=== PATIENT | female | born 1935 | race Caucasian/White ===

== ENCOUNTER 2016-08-18 12:05 | Inpatient (IN) | payer OTHER ==
--- NOTE | ~2016-08-18 | OP ---
Record Of Operation [facility] [address] [place]. [address] NAME: DENNIS WHITLOCK : 33 STATUS : ADM IN PAT#: [id number] AGE: 81 ADM/REG DATE : 08/18/16 MR#: [id number] REPORT SERV DATE: 08/19/16 DICTATED BY: ELVI PIZANO DATE: 08/19/16 REPORT STATUS : Draft TRANSCRIBED BY: MODL DATE: 08/19/16 DATE OF PROCEDURE: 08/19/2016 PROCEDURE: Placement of right femoral A-line. REASON: Septic shock. The patient requires pressors and aggressive IV fluid resuscitation. This is an urgent situation. The patient is agreeable to placement of the central line. DESCRIPTION OF PROCEDURE: The right groin was prepped and draped in a sterile fashion. Lidocaine 1% was used as a local anesthetic. The right femoral vein was localized using ultrasound guidance. A finder needle was then inserted into the right femoral vein with good blood return. A larger bore needle was then inserted into the right femoral vein. The barrel of the needle was removed and a guidewire was then threaded through the needle with removal of the needle. The site was dilated and a 20 cm triple-lumen catheter was placed using Seldinger technique. The line was sewn in place with 2-0 silk and sterile Biopatch was applied along with sterile dressing. /ANTOINETTE Elvi Pizano M.D. / [id number] CC: Luciano Daily M.D.
--- NOTE | ~2016-08-18 | DS ---
Discharge Summary [facility] [address] [place]. [address] NAME: DENNIS WHITLOCK : 33 STATUS : DIS IN PAT#: [id number] AGE: 81 ADM/REG DATE : 08/18/16 MR#: [id number] REPORT SERV DATE: 09/19/16 DICTATED BY: CLAY HELM DATE: 09/19/16 REPORT STATUS : Draft TRANSCRIBED BY: ANTOINETTE DATE: 09/19/16 ADMISSION DATE: 08/18/2016 DISCHARGE DATE: 08/19/2016 SUMMARY CONDITION AT DISCHARGE: . Please note that within those 24 hours, the patient has a history and physical from the hospitalist, a consultation report from one of my partners in Critical Care on the day of discharge, consultation from Surgery and yet another of procedure and pulmonary critical care response from one my partners for the code blue called on Ms. Whitlock. There is ample documentation from her course and her code on the lead up to discontinuation of care, as well as documentation on the progress note. I was the manager payer steam conditioner filling that night who pronounced her passing, though I had not participated in her direct care up to that point. This was an 81-year-old woman, admitted with watery diarrhea and dehydration. She was found to have decreased appetite and weight loss, chronic GI problems. She was seen by Critical Care and was found to have significant failure to thrive, hypotension, and shock. She was placed on fluids and pressors and had developed pneumoperitoneum with free air in the abdomen. She had a perforated viscus with a deteriorating clinical condition. The patient had refused operative intervention for period of roughly two hours and underwent repair of a duodenal perforation earlier in the day, remained refractory septic shock, had an asystolic cardiac arrest. ACLS was promptly initiated by MICU staff, and she was seen by one of the partners in the Critical Care Medicine Service. She was stabilized and the team contacted her family who at that point, given her poor overall condition and status post arrest, opted to make her a DNR. She was made comfort measures while the family was en route to see the patient. The patient at 1550 hours in the afternoon. Family was present and notified. CINTIA/ANTOINETTE Clay Helm M.D. / [id number] CC: Migue Nash MD
--- NOTE | ~2016-08-18 | OP ---
Record Of Operation [facility] [address] [place] [address] NAME: DENNIS WHITLOCK : 33 STATUS : ADM IN PAT#: [id number] AGE: 81 ADM/REG DATE : 08/18/16 MR#: [id number] REPORT SERV DATE: 08/19/16 DICTATED BY: ELVI PIZANO DATE: 08/19/16 REPORT STATUS : Draft TRANSCRIBED BY: MODL DATE: 08/19/16 DATE OF PROCEDURE: 08/19/2016 PROCEDURE: Placement of right femoral arterial line. REASON: The patient septic on pressors and needs invasive arterial blood pressure monitoring. PROCEDURE IN DETAIL: The right groin already has been prepped and draped in sterile fashion. Lidocaine 1% was used as local anesthetic. The right femoral artery was localized using ultrasound guidance. The large bore needle was then inserted into the right femoral artery with good blood return. Guidewire was threaded through the needle, which was then removed. A 12 cm catheter was then inserted over the guidewire with removal of the guidewire. The line was sewn in place with 2-0 silk. Sterile Biopatch and dressings were applied, and good waveform was obtained. /ANTOINETTE Elvi Pizano M.D. / [id number] CC: Luciano Daily M.D.
--- NOTE | ~2016-08-18 | CN ---
Consultation Report [facility] [address] [place]. [address] NAME: DENNIS WHITLOCK : 33 STATUS : ADM IN PAT#: [id number] AGE: 81 ADM/REG DATE : 08/18/16 MR#: [id number] REPORT SERV DATE: 08/19/16 DICTATED BY: ELVI PIZANO DATE: 08/19/16 REPORT STATUS : Draft TRANSCRIBED BY: MODL DATE: 08/19/16 CONSULT AND CRITICAL CARE TIME DATE OF CONSULTATION: 08/19/2016 HISTORY OF PRESENT ILLNESS: This is an 81-year-old patient, I was called about an approximately quarter to 12 p.m. on 08/18/2016. The patient was admitted earlier on the 08/18/2016 with a chief complaint of watery diarrhea. She also was found to have decreased appetite, weight loss. She is followed by Dr. Benitez for her diarrhea. The patient has not been admitted here before but apparently according to the hospitalist dictation, there is no evidence of any celiac disease or colitis. The patient was treated for urinary tract infection in April. She went to see Dr. Benitez today and was found to be hypotensive and hypothermic. She was admitted to the floor and was hypotensive throughout the day into the evening on the floor. She had a CT scan of the abdomen and pelvis done and was found to have pneumoperitoneum and ascites consistent with perforated bowel. The patient continued to be hypotensive and then was transferred to the MICU for further care and treatment. The patient arrived to the MICU at 12:45 a.m. She was responsive, however, her blood pressure was in the 60s to 70s systolic despite IV fluid resuscitation. She required placement of a central line and A-line, initiation of Levophed, bicarbonate, and further IV fluid administration. The patient is in critical condition. ALLERGIES: SHE HAS NO KNOWN DRUG ALLERGIES. PAST MEDICAL HISTORY: Significant for chronic diarrhea, valvular heart disease namely aortic, iron-deficiency anemia. She is very hard of hearing. History of colonic polyps, glaucoma, dentures, frequent UTIs, duodenitis, hiatal hernia, gastritis, esophagitis, urinary incontinence, and failure to thrive. She has also had a bladder tack. SOCIAL HISTORY: She apparently lives independently. She is . She does not have any history of alcohol or tobacco abuse. FAMILY HISTORY: Significant for chronic diarrhea in her mother. Otherwise, no other known family history. REVIEW OF SYSTEMS: Biggest complaint is now of diffuse abdominal pain but it is localized mostly to the right lower quadrant. She has not had any diarrhea in the hospital. She denies any chest pain, nausea, or vomiting. The remainder of a 10-point review of systems is unremarkable. PHYSICAL EXAMINATION: VITAL SIGNS: Her blood pressure is 70 systolic. Her respiratory rate is 22. Her temp is 94. GENERAL: The patient is pale, emaciated, and cachectic looking. SKIN: Cool to touch. She is not diaphoretic. Consultation Report [facility] [address] [place]. [address] NAME: DENNIS WHITLOCK : 33 STATUS : ADM IN [facility]#: [id number] AGE: 81 ADM/REG DATE : 08/18/16 MR#: [id number] REPORT SERV DATE: 08/19/16 DICTATED BY: ELVI PIZANO DATE: 08/19/16 REPORT STATUS : Draft TRANSCRIBED BY: ANTOINETTE DATE: 08/19/16 HEENT: Head is atraumatic and normocephalic. Pupils are sluggishly reactive. Sclerae anicteric. Conjunctivae pale. Nasal mucosa within normal limits. Oral mucosa is dry. NECK: Neck is supple. There is no JVD, lymphadenopathy, or thyromegaly. LUNGS: Exam reveals distant breath sounds. Decreased at the bases. No wheezing heard. CARDIAC: Exam reveals an irregularly irregular rhythm, atrial fibrillation. No significant murmurs heard. BREASTS: Symmetrical. No masses. GI: Abdomen is flat at the time of initial examination but as the morning wore on, abdomen has become slightly more distended and is tender to touch. Bowel sounds are diminished. No organo-splenomegaly is appreciated. RECTAL: Deferred. GENITAL: Deferred. EXTREMITIES: Without cyanosis, clubbing, however she does have some lower extremity edema and dry and chronic skin changes. NEUROLOGIC: Cranial nerves 2 through 12 are grossly intact. Motor and sensory are intact. DATA: Chest x-ray; lungs are hyperinflated, all chronic changes are noted. There is a small right parahilar pulmonary nodule. CT scan of the abdomen and pelvis, as noted above. Lactic acid level is 1.2. Initial blood gas on the showed a pH of 7.45, pCO2 of 28, pO2 of 113, bicarbonate of 13 on room air. Coags are within normal limits. White cell count is 4.9, hemoglobin 9.8, hematocrit 27, platelet count 277,000, 11 bands. Procalcitonin 5.41, sodium 133, potassium 2.5, bicarbonate 16, BUN 36, creatinine 0.94, glucose 97. LFTs within normal limits. Repeat ABG shows a pH of 7.5, pCO2 of 24, pO2 of 66, bicarbonate of 19. ASSESSMENT AND PLAN: This is an 81-year-old patient with failure to thrive, chronic diarrhea who presents with a chief complaint of being hypotensive in the doctor's office, was found to be hypothermic and hypotensive upon arrival to the hospital and then was found to have pneumoperitoneum and probable perforated bowel. She currently is in septic shock and has been hypotensive for hours. She currently has been IV fluid resuscitated, started on Levophed with central line and A-line placed. Now, she has a MAP of 65. She continues to be hypothermic, a sure sign of further septic shock. A long discussion has been had with the patient as well as myself and the surgeon Dr. Kinney. Several options were discussed, one of which was percutaneous draining but with the patient with a worsening abdominal exam and increasing pain, it appears that surgical intervention is needed. The patient has agreed to exploratory laparotomy as well as drainage of any abscess that is found. In the meantime, we will continue to stabilize the patient, obtain blood cultures, place a Roberts. Continue IV fluid resuscitation. Obtain a cortisol level. The patient already has been typed and crossed, and two units are on hold. The patient's condition is extremely critical. Her prognosis is extremely poor without surgery and even with surgery. Given her condition, her prognosis is still fairly guarded. Numerous attempts have been made to contact her family, and they cannot be found. They have Consultation Report [facility] [id number] [place]. [address] NAME: DENNIS WHITLOCK : 33 STATUS : ADM IN [facility]#: [id number] AGE: 81 ADM/REG DATE : 08/18/16 MR#: [id number] REPORT SERV DATE: 08/19/16 DICTATED BY: ELVI PIZANO DATE: 08/19/16 REPORT STATUS : Draft TRANSCRIBED BY: MODSandie DATE: 08/19/16 not answered the phone, and their address is not known. So, the patient has consented to surgery. We will continue to monitor the patient. Total time critical care spent; commenced at 1245 hours, was 90 minutes starting at 1245 hours and ending at 0215 hours. Of that 90 minutes, 30 minutes was spent placing central line and A-line with the remaining 60 minutes of critical care time. ADDENDUM Continuing efforts have been ongoing as to locate the patient's family, but we have not been successful. Other issues that need to be addressed with the patient are in fact that it appears that she has gone into atrial fibrillation, but it is a controlled rate, so we will just observe that. Also she is hypokalemic and so potassium will be replaced along with any other electrolytes that are low. Metabolic acidosis, probably more than likely secondary to sepsis, 2 amps of bicarbonate were given. The patient is at risk for further deterioration as the sepsis progresses including SOFI and respiratory failure. Her condition continues to be critical. /MODL Elvi Pizano M.D. / [id number] / [id number] CC: Luciano Daily M.D.
--- NOTE | ~2016-08-18 | OP ---
Record Of Operation [facility] [address] [place]. [address] NAME: DENNIS WHITLOCK : 33 STATUS : DIS IN PAT#: [id number] AGE: 81 ADM/REG DATE : 08/18/16 MR#: [id number] REPORT SERV DATE: 10/08/16 DICTATED BY: ERIN MUIR DATE: 10/08/16 REPORT STATUS : Draft TRANSCRIBED BY: MODL DATE: 10/08/16 DATE OF PROCEDURE: 08/19/2016 PREOPERATIVE DIAGNOSIS: Abdominal free air and free fluid with peritoneal signs. POSTOPERATIVE DIAGNOSIS: Perforated duodenal ulcer. PROCEDURE: Exploratory laparotomy with abdominal washout and Chris patch procedure. IV FLUIDS: Per Anesthesia records. ESTIMATED BLOOD LOSS: Minimal. FINDINGS: The patient had about a 1 cm anterior duodenal perforation in the first portion of her duodenum consistent with duodenal ulcer. There was no evidence of malignancy of the area. She had rashaad succus throughout her entire abdomen. She had not much of an inflammatory response. She is extremely cachectic. SPECIMENS: None. INDICATIONS: This is an 81-year-old female who had delayed CT scan upon admission and was found to have free air and free fluid. For the last several hours, both I and my resident have been trying to convince her to have an operation, which she initially refused. Eventually, she was amenable to an operation, understanding that her mortality without an operation would be essentially 100%. Nevertheless, she understood the outcome from this procedure was not likely to be very positive either, but she did elect to undergo an operation. We also did our best to discuss this with the family. PROCEDURE IN DETAIL: Preoperatively, the patient was definitively identified in the holding area. It was confirmed that a signed consent was on the chart. Lines were placed per Anesthesia and she was transferred to the operating room and placed supine on the operating table with both arms extended and appropriate padding to all pressure points. After appropriate surgical pause, general endotracheal anesthesia was administered. She was already on antibiotics. After prepping and draping in sterile fashion, a midline incision was performed with findings as mentioned above. After rinsing out the abdomen with copious amounts of warm irrigation fluid, we placed a Bookwalter retractor system to assist in visualization. We were easily able to localize the point of perforation. We created a tongue of greater omentum between clamps and ties as well as Bovie electrocautery. Four sutures were placed off the four corners of the duodenal perforation and tied down loosely and taking only serosa. The tongue of omentum was then placed over the perforation and the tails of these sutures were tied x4 thus holding the omentum in place firmly without cutting off its blood supply, but nevertheless, effectively plugging the hole. We palpated an NG tube in correct position in the stomach and the patient was transferred to the ICU in critical, but stable condition. I do not anticipate that she will have a good outcome from this due to her cachexia, her advanced age, her multiple comorbidities, and the extent of abdominal soilage. She is on multiple pressors at this time. Family has been contacted and Record Of Operation [address] [place]. [address] NAME: DENNIS WHITLOCK : 33 STATUS : DIS IN PAT#: [id number] AGE: 81 ADM/REG DATE : 08/18/16 MR#: [id number] REPORT SERV DATE: 10/08/16 DICTATED BY: ERIN MUIR DATE: 10/08/16 REPORT STATUS : Draft TRANSCRIBED BY: ANTOINETTE DATE: 10/08/16 updated. YEYON/ANTOINETTE Erin Muir MD / [id number] CC: Migue Nash MD
--- NOTE | ~2016-08-18 | OP ---
Record Of Operation [facility] [place] [address]. [address] NAME: DENNIS WHITLOCK : 33 STATUS : ADM IN PAT#: [id number] AGE: 81 ADM/REG DATE : 08/18/16 MR#: [id number] REPORT SERV DATE: 08/19/16 DICTATED BY: GEOVANI SARAH DATE: 08/19/16 REPORT STATUS : Draft TRANSCRIBED BY: MODL DATE: 08/19/16 DATE OF PROCEDURE: 08/19/2016 PULMONARY AND CRITICAL CARE MEDICINE INTUBATION NOTE REASON FOR INTUBATION: Asystolic cardiac arrest status post duodenal perforation and refractory septic shock. PREMEDICATION: None, the patient was actively coding. CONSENT: Emergent. PROCEDURE IN DETAILS: During a pulse check during code blue efforts, Dennis Whitlock was intubated using a #3 GlideScope and a 7.5 endotracheal tube. Under direct visualization, a pre-lubricated GlideScope was advanced into her mouth after her dentures were removed and a 7.5 endotracheal tube, which was also pre-lubricated, was advanced under direct visualization through her vocal cords and into the trachea and secured to the patient at a depth of 19 cm at the lip. Following tube insertion, she had bilateral breath sounds, although they were coarse. Positive color change on CO2 detector. Absent breath sounds over the fundus of the stomach with bagging, and she was placed on mechanical ventilation after return of spontaneous circulation. Please see my separate code blue dictation for additional details of that event. Intubation order set was being prepared and a chest x-ray was requested for confirmation of tube placement, which was pending at the time of this dictation. JAYLENE/ANTOINETTE Geovani Sarah MD / [id number] CC: Migue Nash MD
--- NOTE | ~2016-08-18 | CN ---
Consultation Report [facility] [address] [place]. [address] NAME: DENNIS WHITLOCK : 33 STATUS : ADM IN PAT#: [id number] AGE: 81 ADM/REG DATE : 08/18/16 MR#: [id number] REPORT SERV DATE: 08/19/16 DICTATED BY: ERIN MUIR DATE: 08/19/16 REPORT STATUS : Draft TRANSCRIBED BY: MODL DATE: 08/19/16 CONSULT NOTE DATE OF CONSULTATION: 08/19/2016 REASON FOR CONSULT: Abdominal pain, free air on CT scan. CHIEF COMPLAINT: Abdominal pain. HISTORY OF PRESENT ILLNESS: This is an 81-year-old debilitating and cachectic female who presented with reports of worsening diarrhea over the last month. She apparently had presented to her physician's office today where she was found to be hypotensive and was told to present to the emergency department. In the emergency department, she was admitted for hypotension, dehydration, and failure to thrive. Temperature was 94 at admission. She was reporting abdominal pain and CT scan was obtained, which was significant for a large abscess in the right pericolic gutter as well as some associated free air of unknown etiology or origin. She denied any blood in her stools and has had normal bowel movements. She does not eat a lot. She denies any cough, fever, or chills. She denies any chest pain. Her main complaint is feeling weak all over, but most specifically pain in the right side of her abdomen. She is extremely hard of hearing, so interview was difficult. Some information is obtained through chart review. At presentation, the patient's abdomen was tender and her blood pressure was in the 70s over 40s and arrangements were being made to transfer the patient to the intensive care unit. In the intensive care unit, central line was placed in the right femoral vein and right femoral arterial line was placed. She was placed on Levophed. Her abdomen has slowly and progressively become more distended and more tender throughout the course of the evening. General Surgery was consulted for possible surgical intervention. REVIEW OF SYSTEMS: Otherwise negative except as per HPI. PAST MEDICAL HISTORY: 1. Chronic diarrhea. 2. Aortic valve disease. 3. Anemia. 4. History of colon polyps. 5. Hearing loss. 6. History of frequent UTIs. 7. History of gastritis and duodenitis. 8. Large hiatal hernia. 9. Failure to thrive. PAST SURGICAL HISTORY: She reports a cholecystectomy 2 years ago as well as a melanoma excision on the left chest wall. Consultation Report [facility] [address] [place]. [address] NAME: DENNIS WHITLOCK : 33 STATUS : ADM IN PAT#: [id number] AGE: 81 ADM/REG DATE : 08/18/16 MR#: [id number] REPORT SERV DATE: 08/19/16 DICTATED BY: ERIN MUIR DATE: 08/19/16 REPORT STATUS : Draft TRANSCRIBED BY: ANTOINETTE DATE: 08/19/16 MEDICATIONS: Reviewed. Please see EMR for complete dosing schedule. ALLERGIES: NO KNOWN DRUG ALLERGIES. FAMILY HISTORY: She is unable to recall any significant family history of disease, though admittedly this portion of the interview was difficult for her to understand. SOCIAL HISTORY: She does live independently and has a daughter who checks up on her. She is a . She does not drink, smoke, or use any illegal drugs. PHYSICAL EXAMINATION: VITAL SIGNS: Temperature 98.0, blood pressure 74/40, heart rate 90, respirations 20, O2 saturations most recent reported at 98%. GENERAL APPEARANCE: She is extremely frail and cachectic with evidence of malnutrition and temporal wasting as well as extremity wasting. She has a significant amount of loose skin. She is alert and oriented x3 and is able to recall her children's names and phone numbers. She is aware of her location and the year. HEAD, EYES, EARS, NOSE, AND THROAT: Extraocular muscles are grossly intact. Conjunctivae are pink and dry. There is no facial droop. There is temporal wasting. Hearing is poor. There is no otorrhea or rhinorrhea. No facial droop. Oropharynx is pink and dry. NECK: Examination of the neck reveals no thyromegaly. Trachea is midline. No cervical lymphadenopathy. No supraclavicular lymphadenopathy. CHEST: Respirations are nonlabored and lungs are clear to auscultation bilaterally. CARDIOVASCULAR: Heart rate is irregularly irregular with murmur most prominent in the right sternal border. Pulses are difficult to palpate in all extremities; however, groin pulses are easily palpable and 2+. Cap refill time less than 2 seconds. ABDOMEN: Initial exam showed a scaphoid abdomen; however, throughout the course of discussion with the patient over the ensuing 1 to 2 hours, her abdomen became progressively more distended and tender. She has no tenderness in the left nora-abdomen; however, she does have some voluntary guarding in the right upper quadrant and right lower quadrant. There are no hernias palpated. EXTREMITIES: She does have some 1+ edema bilaterally in the extremities. No evidence of cyanosis. There are no deformities in the joints. MUSCULOSKELETAL: Extreme muscle wasting and no joint deformities. NEUROLOGIC: No focal deficits. PSYCHIATRIC: Appropriate mood and affect. She has normal speech patterns. Again, she is alert and oriented. LABORATORY STUDIES: Most recent on exam, significant for a lactate of 1.2. A white blood cell count of 4.9, hemoglobin and hematocrit of 9.8 and 27.8 respectively. INR is 1.2. Comprehensive metabolic panel significant for procalcitonin of 5.4, hypokalemia of 2.5 which was present on her labs some 7 hours ago. Creatinine is 0.9 with a BUN of 36. CO2 significant at 16, sodium is 133. Her albumin is 2.0. Her bilirubin and transaminases are within normal limits. Consultation Report [facility] [id number] [facility] [place]. [address] NAME: DENNIS WHITLOCK : 33 STATUS : ADM IN [facility]#: [id number] AGE: 81 ADM/REG DATE : 08/18/16 MR#: [id number] REPORT SERV DATE: 08/19/16 DICTATED BY: ERIN MUIR DATE: 08/19/16 REPORT STATUS : Draft TRANSCRIBED BY: ANTOINETTE DATE: 08/19/16 IMAGING STUDIES: Review of CT scan shows a large hiatal hernia as well as pneumoperitoneum and ascites of unknown origin. Ascites is primarily located above the liver in the right pericolic gutter with air fluid levels. This was a noncontrast CT and the patient is extremely cachectic, so it is difficult to interpret any localized inflammation. She does have a small right pleural effusion. ASSESSMENT AND PLAN: This is an 81-year-old female with free air on abdominal CT and exam findings concerning for perforated viscus. It is unknown at this time where the location of the perforation is and discussion with radiologist did not provide a definitive answer due to the noncontrast CT and lack of surrounding inflammation. In any event, the patient's clinical condition is deteriorating and there were multiple rashaad discussions on the necessity of emergent surgical intervention. The patient initially refused operative intervention for a period of roughly 2 hours until further discussion was had with her where it was made clear that without an operation, this would likely take her life. She was amenable to operative intervention at that time. She is a full code. In the meantime, the patient is seen in the intensive care unit undergoing resuscitation with antibiotic administration and central access placement. Plan for emergent laparoscopy, possible laparotomy, possible bowel resection, possible ostomy, and drain placement with abdominal washout. Multiple attempts were made to contact the patient's children by all parties involved including myself as well as the intensive care unit attending physician and primary care physician who admitted her to the hospital. The patient's assessment and plan was discussed with Dr. Muir, who understands and agrees. DICTATED BY: Ezequiel Kinney MD KSH/MODL Erin Muir MD / [id number] CC: Luciano Daily M.D.
--- NOTE | ~2016-08-18 | CN ---
Consultation Report [facility] [address] [place]. [address] NAME: DENNIS WHITLOCK : 33 STATUS : ADM IN PAT#: [id number] AGE: 81 ADM/REG DATE : 08/18/16 MR#: [id number] REPORT SERV DATE: 08/19/16 DICTATED BY: GEOVANI SARAH DATE: 08/19/16 REPORT STATUS : Draft TRANSCRIBED BY: MODL DATE: 08/19/16 DATE OF CONSULTATION: PULMONARY CRITICAL CARE CODE BLUE RESPONSE NOTE Code blue was called on Ms Whitlock at 1250 hours for an initial rhythm asystole in MICU bed 13. She is an elderly lady, who underwent a repair of a duodenal perforation earlier today, and is in refractory septic shock. ACLS was promptly initiated by the MICU nursing staff, and she was Ambu bagged. CPR was initiated and she received an amp of epinephrine. On initial pulse check at 1252 hours, she remained in asystole, and CPR was continued. Another amp of epinephrine was given as well as two amps of sodium bicarb. On the second pulse check at 1255 hours, she remained in asystole and ACLS was continued, and an additional epinephrine was prepared and administered at 1258 hours. She also received an amp of calcium, an amp of D50, and on the subsequent pulse check, she was noted to be in PEA at 1259 hours. ACLS continued, a fourth amp of epinephrine was given, and at 1301 hours, she remained in asystole. Fifth amp of epinephrine was given, and on the final pulse check at 1302 hours, she had a waveform on her arterial line and had a very faint palpable femoral pulse. Return of spontaneous circulation was called, and she was continued on her Levophed, vasopressin, and epinephrine infusions. Stat labs were collected through her line and her family was notified of the events. JAYLENE/ANTOINETTE Geovani Sarah MD / [id number] CC: Migue Nash MD
--- NOTE | ~2016-08-18 | HP ---
History And Physical [facility] [id number] [place]. [address] NAME: DENNIS WHITLOCK : 33 STATUS : ADM IN [facility]#: [id number] AGE: 81 ADM/REG DATE : 08/18/16 MR#: [id number] REPORT SERV DATE: 08/19/16 DICTATED BY: HARRIS SZYMANSKI DATE: 08/18/16 REPORT STATUS : Draft TRANSCRIBED BY: ANTOINETTE DATE: 08/18/16 DATE OF ADMISSION: 08/18/2016 CHIEF COMPLAINT: Diarrhea. HISTORY OF PRESENT ILLNESS: The patient is a very pleasant 81-year-old white female, apparently she has had a lifetime of diarrhea, but over the last month, it has been quite worse, she has had up to 20 episodes a day of watery diarrhea. She lives independently, has a daughter who checks on her. She has eaten very little. She has tried to hydrate herself but she has lost extensive weight now weighing 75 [address] She has seen Dr[address] Benitez actually in the office for her diarrhea. There was no specific diagnosis related to her diarrhea. I reviewed her records, there was no evidence of celiac disease. There was no real description of colitis. She did take some antibiotics in April due to urinary tract infection. She has had no real abdominal pain. She denies any blood in her stool. She denies any new cough. She denies fevers or chills. She denies chest pain. She states her family reports she is weak all over, really has now difficulty even ambulating, cannot even get around as she has become so weak. She is noted to be hypotensive today in Dr. Benitez's office, and upon arrival here to the floor, she is hypotensive and hypothermic. PAST MEDICAL HISTORY: 1. Chronic diarrhea. 2. 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 3. Iron deficiency anemia. 4. Colon polyps. 5. Hard of hearing. 6. Dentures. 7. Glaucoma. 8. Frequent UTIs. 9. Duodenitis. 10.Gastritis. 11.Hiatal hernia. 12.Esophagitis. 13.Urinary incontinence. 14.Failure to thrive. SOCIAL HISTORY: She lives independently. She is . She does not drink or smoke. FAMILY HISTORY: Her mom had chronic diarrhea also with no underlying diagnosis. ALLERGIES: NO KNOWN DRUG ALLERGIES. PAST SURGICAL HISTORY: She has had cholecystectomy and melanoma excision. HOME MEDICATIONS: Reviewed and attached. REVIEW OF SYSTEMS: History And Physical [address] [address] NAME: DENNIS WHITLOCK : 33 STATUS : ADM IN PAT#: [id number] AGE: 81 ADM/REG DATE : 08/18/16 MR#: [id number] REPORT SERV DATE: 08/19/16 DICTATED BY: HARRIS SZYMANSKI DATE: 08/18/16 REPORT STATUS : Draft TRANSCRIBED BY: ANTOINETTE DATE: 08/18/16 Full 10-point review of systems obtained. Pertinent positives already mentioned in the HPI. PHYSICAL EXAMINATION: GENERAL: Very frail, cachectic lady, pleasant, very hard of hearing. HEENT: Normocephalic, atraumatic. She does have temporal wasting. Mouth is clear. Throat is dry. NECK: Supple. HEART: Regular rate and rhythm. LUNGS: Grossly clear but diminished at the bases. ABDOMEN: Soft, scaphoid. She does have bowel sounds. She is nontender on exam. Hemoccult and stool studies are pending. EXTREMITIES: Warm and dry, but she has 2+ edema to about the mid tibia. She did have signals at her feet with a Doppler but her pulse was not palpable as her feet are very cold and swollen. SKIN: Intact without obvious rash or lesion. NEUROlOGIC: She is alert. She is oriented to person, place, and time. Her speech is intact. She is hard of hearing which makes communication difficult, but she does understand. Strength is 4 to 5 in all four extremities. She is generally weak. Tone is normal. PSYCH: Her mood and affect are appropriate. LABS: Labs are all pending. ASSESSMENT/PLAN: 1. Acute on chronic diarrhea with some 20 to 30 pounds weight loss, anorexia, failure to thrive, hypothermia, likely all related to weight loss and diminished p.o. intake as well as chronic diarrhea. We will send off stool studies to include Clostridium difficile and panculture. We will hydrate her aggressively. We will obtain a CT to look for colitis. Lots of possibilities here, but first, we would like to see what her stool studies look like. If she has clostridium difficile, we will treat accordingly. If this is all negative, may consider additional workup. I consulted Dr. Benitez to see her in the hospital, he was talking about a possible PEG with some tube feeds. We will await his input. 2. Hypothermia and hypotension, likely secondary to diminished p.o. intake, anorexia. She does not appear to be septic. Her sats are excellent on her ABG. I suspect with some hydration, both of these parameters will improve. I am still waiting for her labs including her kidney function, liver function, CBC, and once I have this back, can go from there. She is under a Juan Hugger, and I am going to follow critical core temperature, we will get her temperature above 97. I suspect her hypothermia is related to her anorexia as is her hypotension. 3. History of glaucoma. 4. History of valvular heart disease. 5. Social circumstances, she would likely need to be seen by case management. I suspect that she is going to need more monitoring. She needs to be either living with someone or her having someone who comes and stays with her during the day. She is no longer able to care for herself due to her debilitated state. 6. Failure to thrive. See numbers 1, 2 and 3. History And Physical [facility] [id number] [facility] [place]. [address] NAME: DENNIS WHITLOCK : 33 STATUS : ADM IN PAT#: [id number] AGE: 81 ADM/REG DATE : 08/18/16 MR#: [id number] REPORT SERV DATE: 08/19/16 DICTATED BY: HARRIS SZYMANSKI DATE: 08/18/16 REPORT STATUS : Draft TRANSCRIBED BY: ANTOINETTE DATE: 08/18/16 DISPOSITION: Pending above. DONNA/ANTOINETTE Harris Szymanski M.D. / [id number] CC: Migue Nash
[2016-08-18] MEDS ORDERED: MAX25 PO (12:47)
[2016-08-18] MEDS ORDERED: COSOPT OPH (12:48)
[2016-08-18 13:00] LABS: CARBOXYHEMOGLOBIN 0.7 % (0-3); HCO3 (ACTUAL BICARBONATE) 13.7 MEQ/L (23-27); HEMOBLOGIN CONTENT 13.2 G/DL (12-16); INSTRUMENT SERIAL # 11843; METHEMOGLOBIN 0.2 % (0-3); O2 CONTENT 18.1 VOL% (18-24); PCO2 (CO2 TENSION) 20 MMHG (35-45); PO2 (O2 TENSION) 113 MMHG (79-93); SAMPLE Arterial; pH 7.45 (7.37-7.43)
[2016-08-18 13:01] LABS: DEVICE room air
[2016-08-18 16:37] LABS: INTERNATIONAL NORMAL RATI 1.2 UNITS (-); PARTIAL THROMBO TIME 29.9 SEC (22.5-37.2); PROTIME (NOT ORD) 14.8 SEC (12.0-14.5)
[2016-08-18 16:58] LABS: A/G RATIO 0.6 (0.7-1.9); ALBUMIN 1.7 G/DL (3.5-5.0); ALKALINE PHOSPHATASE 152 U/L (45-117); BUN (BLOOD UREA NITROGEN) 45 MG/DL (6-23); CHLORIDE, SERUM 99 MMOL/L (96-112); CO2 (CARBON DIOXIDE) 19 MMOL/L (24-34); CREATININE 1.02 MG/DL (0.55-1.02); FREE T4 1.13 NG/DL (0.76-1.46); GFR AFRICAN AMERICAN 59 ML/MIN (>=60); GFR NON AFRICAN AMERICAN 51 ML/MIN (>=60); GLOBULIN 2.8 G/DL (2.5-4.1); GLUCOSE, SERUM 88 MG/DL (60-99); PHOSPHORUS, SERUM 3.7 MG/DL (2.5-4.5); PREALBUMIN 5.1 MG/DL (17.0-43.0); SGOT(AST) 24 U/L (5-40); SGPT(ALT) 29 U/L (5-65); SODIUM, SERUM 131 MMOL/L (135-148); TOTAL BILIRUBIN 0.6 MG/DL (0-1.2); TOTAL PROTEIN 4.5 G/DL (6.0-8.5)
[2016-08-18 16:59] LABS: CALCIUM, SERUM 6.9 MG/DL (8.5-10.4); POTASSIUM, SERUM 2.5 MMOL/L (3.5-5.3)
[2016-08-18 23:40] LABS: HEMATOCRIT 27.8 % (36.0-48.0); HEMOGLOBIN 9.8 g/dL (12.0-16.0); MEAN CORPUS HGB CONC 35.3 g/dL (32.0-36.0); MEAN CORPUSCULAR HEMOGLOB 30.8 pg (26.0-34.0); MEAN CORPUSCULAR VOLUME 87.4 fL (80-100); MEAN PLATELET VOLUME 8.8 fL (9.2-13.0); PLATELET COUNT 277 10/3/uL (150-400); RBC DISTRIBUTION WIDTH 14.1 % (12.0-16.0); RED CELL COUNT 3.18 10/6/uL (4.0-5.6); WHITE BLOOD CELLS 4.9 10/3/uL (4.5-10.5)
[2016-08-18 23:41] LABS: MANUAL DIFF YES %
[2016-08-18 23:56] LABS: CALCIUM, SERUM 7.1 MG/DL (8.5-10.4); CHLORIDE, SERUM 106 MMOL/L (96-112); CO2 (CARBON DIOXIDE) 16 MMOL/L (24-34); CREATININE 0.94 MG/DL (0.55-1.02); GFR AFRICAN AMERICAN 65 ML/MIN (>=60); GFR NON AFRICAN AMERICAN 56 ML/MIN (>=60); GLUCOSE, SERUM 97 MG/DL (60-99); SGOT(AST) 15 U/L (5-40); SGPT(ALT) 19 U/L (5-65); SODIUM, SERUM 133 MMOL/L (135-148); TOTAL PROTEIN 3.9 G/DL (6.0-8.5)
[2016-08-18 23:57] LABS: A/G RATIO 1.1 (0.7-1.9); ALKALINE PHOSPHATASE 91 U/L (45-117); BUN (BLOOD UREA NITROGEN) 36 MG/DL (6-23); GLOBULIN 1.9 G/DL (2.5-4.1); POTASSIUM, SERUM 2.5 MMOL/L (3.5-5.3)
[2016-08-19 00:01] LABS: INTERNATIONAL NORMAL RATI 1.3 UNITS (-); PROTIME (NOT ORD) 16.4 SEC (12.0-14.5)
[2016-08-19 00:02] LABS: PARTIAL THROMBO TIME 35.9 SEC (22.5-37.2)
[2016-08-19 00:11] LABS: BAND NEUTROPHILS 11 %; BURR CELLS 1+ (3-10/OIF) (0-2/OIF); LYMPHOCYTES 5 %; LYMPHOCYTES ABSOLUTE (CALC) 0.25 10/3/uL (0.67-4.30); MONOCYTES 3 %; MONOCYTES ABSOLUTE (CALC) 0.15 10/3/uL (0.21-1.20); NEUTROPHILS ABSOLUTE (CALC) 4.51 10/3/uL (2.02-8.40); PLATELET ESTIMATE ADQ (ADEQUATE); SEGMENTED NEUTROPHIL (0) 81 %; TEARDROP SHAPED RBCS OCC (0-2/OIF); TOTAL NUCLEATED CELLS 100
[2016-08-19 00:12] LABS: TOXIC GRANULATION SLT; VACUOLATED NEUTROPHILES OCC
[2016-08-19 00:22] LABS: PROCALCITONIN 5.41 ng/mL (<0.5)
[2016-08-19 03:08] LABS: MEAN CORPUSCULAR HEMOGLOB 31.2 pg (26.0-34.0); MEAN CORPUSCULAR VOLUME 86.6 fL (80-100); MEAN PLATELET VOLUME 8.9 fL (9.2-13.0); PLATELET COUNT 221 10/3/uL (150-400); RBC DISTRIBUTION WIDTH 14.1 % (12.0-16.0)
[2016-08-19 03:11] LABS: HEMATOCRIT 21.4 % (36.0-48.0); HEMOGLOBIN 7.7 g/dL (12.0-16.0); RED CELL COUNT 2.47 10/6/uL (4.0-5.6); WHITE BLOOD CELLS 1.2 10/3/uL (4.5-10.5)
[2016-08-19 03:13] LABS: MANUAL DIFF YES %
[2016-08-19 03:27] LABS: CHLORIDE, SERUM 109 MMOL/L (96-112); CO2 (CARBON DIOXIDE) 19 MMOL/L (24-34); CREATININE 0.72 MG/DL (0.55-1.02); GFR AFRICAN AMERICAN 90 ML/MIN (>=60); GFR NON AFRICAN AMERICAN 77 ML/MIN (>=60); GLUCOSE, SERUM 85 MG/DL (60-99); PREALBUMIN 3.9 MG/DL (17.0-43.0)
[2016-08-19 03:28] LABS: BUN (BLOOD UREA NITROGEN) 32 MG/DL (6-23); POTASSIUM, SERUM 2.8 MMOL/L (3.5-5.3); SODIUM, SERUM 140 MMOL/L (135-148)
[2016-08-19 03:29] LABS: CALCIUM, SERUM 6.7 MG/DL (8.5-10.4)
[2016-08-19 03:36] LABS: SEGMENTED NEUTROPHIL (0) 64 %; TOTAL NUCLEATED CELLS 100
[2016-08-19 03:37] LABS: BAND NEUTROPHILS 20 %; LYMPHOCYTES 16 %; LYMPHOCYTES ABSOLUTE (CALC) 0.19 10/3/uL (0.67-4.30); NEUTROPHILS ABSOLUTE (CALC) 1.01 10/3/uL (2.02-8.40)
[2016-08-19 03:50] LABS: PLATELET ESTIMATE ADQ (ADEQUATE)
[2016-08-19 03:51] LABS: RBC MORPHOLOGY NORM (NORMAL); TOXIC GRANULATION 1+
[2016-08-19 04:00] LABS: ASCORBIC ACID (UR NOT ORDER) NEG (NEG); BILIRUBIN, URINE NEGATIVE (NEG); KETONE, URINE TRACE MG/DL (NEG); LEUKOCYTE ESTERASE(NOT OR LARGE (NEG); WBC (NOT ORDERED) (RFLEX) > 182 (0-5)
[2016-08-19 05:12] LABS: BE (BASE EXCESS) -5.4 MEQ/L (0 +/- 2.5); CARBOXYHEMOGLOBIN 0.3 % (0-3); HCO3 (ACTUAL BICARBONATE) 17.3 MEQ/L (23-27); HEMOBLOGIN CONTENT 11.1 G/DL (12-16); INSTRUMENT SERIAL # 8083; METHEMOGLOBIN 0.1 % (0-3); MODE CMV; O2 CONTENT 16.1 VOL% (18-24); PCO2 (CO2 TENSION) 26 MMHG (35-45); PO2 (O2 TENSION) 291 MMHG (79-93); SAMPLE Arterial; TIDAL VOLUME 400 ML; pH 7.45 (7.37-7.43)
[2016-08-19 06:34] LABS: MEAN CORPUS HGB CONC 35.3 g/dL (32.0-36.0); MEAN CORPUSCULAR HEMOGLOB 31.1 pg (26.0-34.0); MEAN CORPUSCULAR VOLUME 88.1 fL (80-100); MEAN PLATELET VOLUME 9.4 fL (9.2-13.0); PLATELET COUNT 213 10/3/uL (150-400)
[2016-08-19 06:36] LABS: HEMATOCRIT 35.4 % (36.0-48.0); HEMOGLOBIN 12.5 g/dL (12.0-16.0); RED CELL COUNT 4.02 10/6/uL (4.0-5.6); WHITE BLOOD CELLS 1.2 10/3/uL (4.5-10.5)
[2016-08-19 06:37] LABS: MANUAL DIFF YES %
[2016-08-19 06:50] LABS: A/G RATIO 1.2 (0.7-1.9); ALBUMIN 1.9 G/DL (3.5-5.0); ALKALINE PHOSPHATASE 68 U/L (45-117); BUN (BLOOD UREA NITROGEN) 28 MG/DL (6-23); CALCIUM, SERUM 7.7 MG/DL (8.5-10.4); CHLORIDE, SERUM 117 MMOL/L (96-112); CO2 (CARBON DIOXIDE) 21 MMOL/L (24-34); CREATININE 0.64 MG/DL (0.55-1.02); GFR AFRICAN AMERICAN 96 ML/MIN (>=60); GFR NON AFRICAN AMERICAN 83 ML/MIN (>=60); GLOBULIN 1.6 G/DL (2.5-4.1); GLUCOSE, SERUM 101 MG/DL (60-99); POTASSIUM, SERUM 3.8 MMOL/L (3.5-5.3); SGOT(AST) 32 U/L (5-40); SGPT(ALT) 21 U/L (5-65); SODIUM, SERUM 146 MMOL/L (135-148); TOTAL BILIRUBIN 1.4 MG/DL (0-1.2); TOTAL PROTEIN 3.5 G/DL (6.0-8.5)
[2016-08-19 07:14] LABS: CARBOXYHEMOGLOBIN 0.9 % (0-3); DEVICE NC; HEMOBLOGIN CONTENT 13.3 G/DL (12-16); INSTRUMENT SERIAL # 8083; METHEMOGLOBIN 0.3 % (0-3); O2 CONTENT 16.6 VOL% (18-24); PCO2 (CO2 TENSION) 35 MMHG (35-45); PO2 (O2 TENSION) 64 MMHG (79-93); SAMPLE Arterial; pH 7.33 (7.37-7.43)
[2016-08-19 07:42] LABS: BAND NEUTROPHILS 28 %; LYMPHOCYTES 22 %; LYMPHOCYTES ABSOLUTE (CALC) 0.26 10/3/uL (0.67-4.30); NEUTROPHILS ABSOLUTE (CALC) 0.94 10/3/uL (2.02-8.40); SEGMENTED NEUTROPHIL (0) 50 %; TOTAL NUCLEATED CELLS 100
[2016-08-19 07:43] LABS: PLATELET ESTIMATE ADQ (ADEQUATE)
[2016-08-19 07:44] LABS: BURR CELLS 1+ (3-10/OIF) (0-2/OIF)
[2016-08-19 07:45] LABS: TOXIC GRANULATION SLT
[2016-08-19 07:52] LABS: PHOSPHORUS, SERUM 2.4 MG/DL (2.5-4.5)
== END 2016-08-19 15:45 | disposition expired | DRG 853 ==
LOC: 2SO 12:05 → MIC 08-19 01:42
PROVIDERS: Hospitalist; Internal Medicine; Internal Medicine Pulmonary Disease; Surgery
PROC: 5A12012 Performance of Cardiac Output, Single, Manual (ICD-10-PCS; 2016-08-19)
PROC: 0BH17EZ Insertion of Endotracheal Airway into Trachea, Via Natural or Artificial Opening (ICD-10-PCS; 2016-08-19)
PROC: 30233N1 Transfusion of Nonautologous Red Blood Cells into Peripheral Vein, Percutaneous Approach (ICD-10-PCS; 2016-08-19)
PROC: 04HK33Z Insertion of Infusion Device into Right Femoral Artery, Percutaneous Approach (ICD-10-PCS; principal; 2016-08-19 03:20)
PROC: 0DBV0ZX Excision of Mesentery, Open Approach, Diagnostic (ICD-10-PCS; 2016-08-19 03:20)
DX: A41.9 Sepsis, unspecified organism (principal); R65.21 Severe sepsis with septic shock; J96.01 Acute respiratory failure with hypoxia; I46.9 Cardiac arrest, cause unspecified; K26.5 Chronic or unspecified duodenal ulcer with perforation; N17.9 Acute kidney failure, unspecified; E87.2 Acidosis; R62.7 Adult failure to thrive; T68.XXXA Hypothermia, initial encounter
CPT/HCPCS: 31720; 36415; 36600; 71010; 74176; 80048; 80053; 81001; 82330; 82530; 82533; 82803; 82805; 82947; 83605; 83735; 84100; 84132; 84134; 84145; 84295; 84439; 84443; 85014; 85025; 85610; 85730; 86850; 86900; 86901; 86920; 87040; 87086; 88305; 92950; 93005; 94002; A9270-GY; C1894; J0330; J1450; J2250; J2370; J2543; J3010; J3370; J3475; P9016; P9045; P9047